=== PATIENT | male | born 1950 | race Caucasian/White ===

== ENCOUNTER 2019-11-05 12:31 | Emergency (ER) | payer BC ==
[~2019-11-05] VITALS: Ht 167.6 cm; Wt 74.0 kg
[~2019-11-05 12:31] MED LIST: AMOXICILLIN 50500 MG PO; ASPIR-LOW81 MG PO; ASPIRIN 32325 MG/TAB PO; ATORVASTATIN; BYSTOLIC20 MG PO; CLOPIDOGREL PO; EPA FISH OIL1000 MG PO; GLUCOPHAGE500 MG/TAB PO; HIGH BP MED; LIPITOR40 MG PO; LIPITOR80 MG PO; LISINOPRIL10 MG PO; LISINOPRIL40 MG PO; LISINOPRIL5 MG PO; LIVALO4 MG PO; METOPROLOL SUC100 M1 PO; METOPROLOL50 MG PO; NIACIN1000 MG PO; NKA; NORCO 325 MG-51 TAB PO; NORVASC 10MG10 MG PO; TRILIPIX 135MG PO
[2019-11-05 12:42] VITALS: BP 118/69; PULSE 96; TEMP 97.6
[2019-11-05] MEDS ORDERED: ZOCOR 10MG10 MG PO (12:51)
[2019-11-05] MEDS ORDERED: MAGNESIUM250 M1 PO (12:53)
[2019-11-05] MEDS ORDERED: CENTRUM SILVER1 TAB PO (12:54)
[2019-11-05 14:14] LABS: BASO # 0.1 (0.0-0.2); BASO % 0.6 % (0.0-2.0); EOS # 0.3 (0.0-0.7); EOS % 4.1 % (0-4.0); GRAN # 6.2 (1.4-6.5); GRAN % 74.1 % (42.2-75.2); HEMATOCRIT 43.2 % (42.0-52.0); HEMOGLOBIN 13.9 g/dl (13.5-18.0); LYMPH % 11.8 % (20.0-51.0); MEAN CELL VOLUME 97 fl (80.0-100.0); MEAN CORPUSCULAR HEMOGLOBIN 31 pg (27.0-31.0); MEAN CORPUSCULAR HGB CONC 32 g/dl (33.0-37.0); MEAN PLATELET VOLUME 9.7 fl (7.4-10.4); MONO # 0.8 (0.1-0.6); MONO % 9.2 % (1.7-9.3); PLATELET COUNT 176 K/mm3 (130-400); RED BLOOD COUNT 4.47 M/mm3 (4.20-5.60); REDCELL DISTRIBUTION WIDTH-CV 15.1 % (11.5-14.5)
[2019-11-05 14:50] LABS: ALBUMIN 3.6 gm/dL (3.5-5.0); BILIRUBIN,TOTAL 0.7 mg/dL (0.0-1.0); C-REACTIVE PROTEIN 1.1 mg/dL (0.0-0.9); CALCIUM 9.3 mg/dL (8.4-10.2); CREATININE, serum 1.62 (0.66-1.25); POTASSIUM 5.5 mmol/L (3.4-5.0); TOTAL PROTEIN 6.4 gm/dL (6.4-8.2); URIC ACID 8.4 mg/dL (3.5-8.5)
[2019-11-06] MEDS ORDERED: ELIQUIS 5MG PO (09:45)
== END 2019-11-05 15:30 | disposition home or self-care (01) ==
LOC: COL.ER 12:31
PROVIDERS: Emergency Medicine
DX: L08.9 Local infection of the skin and subcutaneous tissue, unspecified (principal); M79.662 Pain in left lower leg; Z79.82 Long term (current) use of aspirin; Z79.84 Long term (current) use of oral hypoglycemic drugs

== ENCOUNTER → 2019-11-06 | Outpatient (CLI) | payer BC ==
[~2019-11-06] MED LIST changes: +CENTRUM SILVER1 TAB PO; +ELIQUIS 5MG PO; +MAGNESIUM250 M1 PO; +ZOCOR 10MG10 MG PO
== END ==
LOC: COL.RAD 08:54
DX: Z13.6 Encounter for screening for cardiovascular disorders (principal); I82.432 Acute embolism and thrombosis of left popliteal vein

== ENCOUNTER 2020-02-13 07:16 | Inpatient (IN) | payer BC, MEDICARE ==
[~2020-02-13] VITALS: Ht 175 cm; Wt 77.0 kg
[2020-02-13] VITALS (11 sets, daily range): BP systolic 110–145; BP diastolic 61–95; PULSE 69–118; TEMP 98–98.5
[2020-02-13 07:54] LABS: BASO # 0.1 (0.0-0.2); EOS # 1.2 (0.0-0.7); EOS % 13.3 % (0-4.0); GRAN # 4.8 (1.4-6.5); GRAN % 55.2 % (42.2-75.2); HEMATOCRIT 44.5 % (42.0-52.0); HEMOGLOBIN 14.4 g/dl (13.5-18.0); LYMPH # 1.9 (1.2-3.4); LYMPH % 21.8 % (20.0-51.0); MEAN CELL VOLUME 94 fl (80.0-100.0); MEAN CORPUSCULAR HEMOGLOBIN 30 pg (27.0-31.0); MEAN CORPUSCULAR HGB CONC 32 g/dl (33.0-37.0); MEAN PLATELET VOLUME 9.2 fl (7.4-10.4); MONO # 0.7 (0.1-0.6); MONO % 8.5 % (1.7-9.3); PLATELET COUNT 218 K/mm3 (130-400); RED BLOOD COUNT 4.73 M/mm3 (4.20-5.60); REDCELL DISTRIBUTION WIDTH-CV 14.6 % (11.5-14.5)
[2020-02-13 07:56] LABS: INR 1.1 (0.8-3.0); PROTHROMBIN TIME 11.9 SECONDS (9.7-12.8)
[2020-02-13 07:59] LABS: PARTIAL THROMBOPLASTIN TIME 34.2 SECONDS (26.0-37.0)
[2020-02-13 08:00] LABS: ALANINE AMINOTRANSFERASE 15 U/L (4-49); ALBUMIN 3.9 gm/dL (3.5-5.0); ALKALINE PHOSPHATASE 39 U/L (50-136); ANION GAP 9 mmol/L (7-16); AST,SGOT 29 U/L (15-37); BILIRUBIN,TOTAL 0.6 mg/dL (0.0-1.0); BLOOD UREA NITROGEN 15 mg/dL (9-20); CALCIUM 9.3 mg/dL (8.4-10.2); CARBON DIOXIDE 21 mmol/L (22-30); CHLORIDE 107 mmol/L (98-107); CREATININE, serum 1.37 (0.66-1.25); GLUCOSE 188 mg/dL (74-106); MAGNESIUM 1.4 mg/dL (1.6-2.3); POTASSIUM 4.8 mmol/L (3.4-5.0); SODIUM 136 mmol/L (137-145); TOTAL PROTEIN 6.8 gm/dL (6.4-8.2)
[2020-02-13 08:24] LABS: TROPONIN-I < 0.012 ng/mL (0.000-0.035)
[2020-02-13 09:24] LABS: COLLECTION METHOD CLEAN CATCH
[2020-02-13 09:31] LABS: MUCOUS Present /lpf; PH 7 (5-8); SQUAMOUS EPITHELIAL 0-2 /hpf; URINE APPEARANCE Clear; URINE BACTERIA None Seen /hpf; URINE BILIRUBIN Negative (NEGATIVE); URINE BLOOD Negative (NEGATIVE); URINE COLOR Yellow; URINE GLUCOSE Negative (NEGATIVE); URINE KETONE Negative (NEGATIVE); URINE LEUKOCYTE ESTERASE Negative (NEGATIVE); URINE NITRATE Negative (NEGATIVE); URINE PROTEIN(semi-quant) Negative (NEGATIVE); URINE RBC 0-2 /hpf; URINE UROBILINOGEN Negative (NEGATIVE)
[2020-02-14] VITALS: BP 131/65; PULSE 68; TEMP 98.6
[2020-02-14 04:00] VITALS: BP 131/61; PULSE 65; TEMP 98.4
[2020-02-14 05:51] LABS: BASO # 0.1 (0.0-0.2); BASO % 0.7 % (0.0-2.0); EOS # 0.6 (0.0-0.7); EOS % 5.5 % (0-4.0); GRAN % 77.6 % (42.2-75.2); HEMATOCRIT 39.9 % (42.0-52.0); HEMOGLOBIN 13.2 g/dl (13.5-18.0); LYMPH # 0.9 (1.2-3.4); LYMPH % 8.9 % (20.0-51.0); MEAN CELL VOLUME 93 fl (80.0-100.0); MEAN CORPUSCULAR HEMOGLOBIN 31 pg (27.0-31.0); MEAN CORPUSCULAR HGB CONC 33 g/dl (33.0-37.0); MEAN PLATELET VOLUME 9.3 fl (7.4-10.4); MONO # 0.7 (0.1-0.6); MONO % 7.1 % (1.7-9.3); PLATELET COUNT 187 K/mm3 (130-400); RED BLOOD COUNT 4.29 M/mm3 (4.20-5.60); REDCELL DISTRIBUTION WIDTH-CV 14.4 % (11.5-14.5)
[2020-02-14 06:01] LABS: ALBUMIN 3.4 gm/dL (3.5-5.0); BILIRUBIN,TOTAL 0.9 mg/dL (0.0-1.0); CALCIUM 8.7 mg/dL (8.4-10.2); CHOLESTEROL RISK RATIO 2.1; CREATININE, serum 1.29 (0.66-1.25); MAGNESIUM 2.3 mg/dL (1.6-2.3); POTASSIUM 4.3 mmol/L (3.4-5.0); TOTAL PROTEIN 6.1 gm/dL (6.4-8.2)
[2020-02-14 08:30] VITALS: BP 135/76; PULSE 64; TEMP 98
[2020-02-14 12:11] VITALS: BP 138/69; PULSE 62; TEMP 99.6
[2020-02-14 17:24] VITALS: BP 128/62; PULSE 63; TEMP 98.3
[2020-02-14 21:21] VITALS: BP 125/63; PULSE 69; TEMP 98.9
[2020-02-15 00:12] VITALS: BP 133/71; PULSE 70; TEMP 99.3
[2020-02-15 04:08] VITALS: BP 132/68; PULSE 67; TEMP 98.4
[2020-02-15 06:49] LABS: CALCIUM 8.7 mg/dL (8.4-10.2); CREATININE, serum 1.51 (0.66-1.25); POTASSIUM 4.4 mmol/L (3.4-5.0)
[2020-02-15 07:53] VITALS: BP 139/63; PULSE 61; TEMP 98.6
[2020-02-15 12:01] VITALS: BP 131/68; PULSE 56; TEMP 98.4
[2020-02-15] MEDS ORDERED: ELIQUIS 5MG PO (15:03)
[2020-02-15] MEDS ORDERED: CEPHALEXIN500 M1 PO (15:03)
[2020-02-15] MEDS ORDERED: CRESTOR20 MG PO (15:04)
[2020-02-15] MEDS ORDERED: ASPIRIN 81M81 MG/TA2 PO (15:05)
[2020-02-15] MEDS ORDERED: BETAPACE 80MG80 MG PO (15:05)
== END 2020-02-15 16:30 | disposition home or self-care (01) | DRG 260 ==
LOC: COL.ER 07:16 → IMCU 13:38 → MEDICAL 02-14 11:59
PROVIDERS: Emergency Medicine; ADMIT Internal Medicine
PROC: 5A2204Z Restoration of Cardiac Rhythm, Single (ICD-10-PCS; principal; 2020-02-13)
PROC: 0JH632Z Insertion of Monitoring Device into Chest Subcutaneous Tissue and Fascia, Percutaneous Approach (ICD-10-PCS; 2020-02-14)
DX: I48.91 Unspecified atrial fibrillation (principal); I63.89 Other cerebral infarction; R20.2 Paresthesia of skin; F17.200 Nicotine dependence, unspecified, uncomplicated; I25.10 Atherosclerotic heart disease of native coronary artery without angina pectoris; Z95.1 Presence of aortocoronary bypass graft; E78.5 Hyperlipidemia, unspecified; I12.9 Hypertensive chronic kidney disease with stage 1 through stage 4 chronic kidney disease, or unspecified chronic kidney disease; E11.22 Type 2 diabetes mellitus with diabetic chronic kidney disease; N18.9 Chronic kidney disease, unspecified; Z79.84 Long term (current) use of oral hypoglycemic drugs; Z86.718 Personal history of other venous thrombosis and embolism; I65.23 Occlusion and stenosis of bilateral carotid arteries; E83.42 Hypomagnesemia
CPT/HCPCS: 99223-AI; 99232-AI; 99239; A9585; C1764; J0461; J1644; J2704; J3475; J7030; Q9967

== ENCOUNTER 2020-10-14 08:54 | Emergency (ER) | payer BC, MEDICARE ==
[~2020-10-14] VITALS: Ht 165 cm; Wt 70.0 kg
[~2020-10-14 08:54] MED LIST changes: +ASPIRIN 81M81 MG/TA2 PO; +BETAPACE 80MG80 MG PO; +CEPHALEXIN500 M1 PO; +CRESTOR20 MG PO; +GLUCOPHAGE1000 MG PO; -GLUCOPHAGE500 MG/TAB PO
[2020-10-14 08:59] VITALS: TEMP 98.3
[2020-10-14] MEDS ORDERED: PRINIVIL40 MG PO (09:42)
[2020-10-14 10:10] VITALS: BP 163/85; PULSE 58
== END 2020-10-14 10:10 | disposition home or self-care (01) ==
LOC: COL.ER 08:54
DX: S51.812A Laceration without foreign body of left forearm, initial encounter (principal); I48.91 Unspecified atrial fibrillation; Z79.01 Long term (current) use of anticoagulants; Z95.1 Presence of aortocoronary bypass graft; Z79.82 Long term (current) use of aspirin; Z79.84 Long term (current) use of oral hypoglycemic drugs; W01.198A Fall on same level from slipping, tripping and stumbling with subsequent striking against other object, initial encounter

== ENCOUNTER 2023-09-09 08:35 | Outpatient (CLI) | payer MEDICARE, BC ==
[~2023-09-09] VITALS: Ht 170.2 cm; Wt 86.3 kg
[~2023-09-09 08:35] MED LIST changes: +BETAPACE 120MG120 MG PO; +FERRO-TIME325 MG PO; -GLUCOPHAGE1000 MG PO; +GLUCOPHAGE500 MG/TAB PO; +HCTZ12.5TAB PO; +IMDUR 60MG60 MG/TAB PO; -NIACIN1000 MG PO; +NIACIN500 M4 PO; +NIASPAN 500MG500 MG PO; +PACERONE200 MG PO; +PACERONE400 MG PO; +PRINIVIL40 MG PO; +PROTONIX 40MG T40 MG PO; +SENEXON-S 50-81 EACH PO; +SODIUM BICARBO650 MG PO; +VITAMIN C500 MG PO; +XARELTO15 MG PO; +XARELTO20 MG PO
[2023-09-09 09:08] VITALS: BP 157/91; PULSE 69; TEMP 98.1
== END 2023-09-09 11:55 ==
LOC: EUO 08:35
DX: D64.9 Anemia, unspecified (principal)
CPT/HCPCS: J1756; J7050

== ENCOUNTER 2023-09-22 11:46 | Inpatient (IN) | payer MEDICARE, BC ==
[~2023-09-22] VITALS: Ht 172.7 cm; Wt 73.4 kg
[2023-09-22] VITALS (7 sets, daily range): BP systolic 135–179; BP diastolic 68–84; PULSE 76–82; TEMP 97.5–98.2
[2023-09-22 12:50] LABS: BASO # 0.1 K/mm3 (0.0-0.2); BASO % 0.6 % (0.0-2.0); EOS % 0.2 % (0.0-4.0); GRAN # 7.3 K/mm3 (1.4-6.5); GRAN % 81.6 % (42.2-75.2); HEMATOCRIT 30.5 % (42.0-52.0); HEMOGLOBIN 8.7 g/dl (13.5-18.0); LYMPH # 0.8 K/mm3 (1.2-3.4); LYMPH % 8.6 % (20.0-51.0); MEAN CELL VOLUME 101 fl (80.0-100.0); MEAN CORPUSCULAR HEMOGLOBIN 29 pg (27-31); MEAN CORPUSCULAR HGB CONC 29 g/dl (33.0-37.0); MEAN PLATELET VOLUME 9.9 fl (7.4-10.4); MONO # 0.7 K/mm3 (0.1-0.6); MONO % 7.7 % (1.7-9.3); PLATELET COUNT 109 K/mm3 (130-400); RED BLOOD COUNT 3.02 M/mm3 (4.20-5.60)
[2023-09-22 13:01] LABS: ALBUMIN 2.8 gm/dL (3.4-4.8); BILIRUBIN,TOTAL 1.5 mg/dL (0.2-1.2); CALCIUM 8.8 mg/dL (8.4-10.2); CREATININE, serum 5.01 mg/dL (0.72-1.25); POTASSIUM 4.6 mmol/L (3.5-4.5); TOTAL PROTEIN 5.9 gm/dL (6.2-8.1)
[2023-09-22 13:21] LABS: TROPONIN-I 0.101 ng/mL (0.00-0.033)
[2023-09-22] MEDS ORDERED: CORDARONE200 MG/TAB PO (14:07)
[2023-09-22] MEDS ORDERED: AMBIEN 10MG10 MG PO (14:08)
[2023-09-22] MEDS ORDERED: XANAX .25M0.25 MG/TA PO (14:09)
[2023-09-22] MEDS ORDERED: BUMEX 1MG TA1 MG/TA1 PO (14:10)
[2023-09-22] MEDS ORDERED: BETAPACE 120MG120 MG PO (14:39)
--- NOTE | 2023-09-22 15:10 | NUR ---
PT ARRIVED TO UNIT AROUND 1415/1430 FROM ED. PT HAD DRIED BLOOD ON FEET AND TOES, WHICH WAS CLEANED. PT HAS WOUNDS TO ALL TEN TOES ALONG THE KNUCKLES AND A FEW SCATTERED ALONG THE FEET; THESE WERE LEFT OPEN TO AIR THEY ARE NOT ACTIVELY WHEEPING OR BLEEDING. THEY APPEAR TO BE FRESH THOUGH. THERE WAS AN OLD SKIN TEAR SCABBED UP ON THE LT FOREARM WITH AN OLD BANDAGE ON IT, THIS WAS REMOVED AND AREA OBSERVED, THEN AN ACQUACELL PLACED ON IT. BELOW THIS SKIN TEAR IS ANOTHER SKIN TEAR THAT WAS NEW, SITE WAS CLEANED AND A TEGADERM PUT IN PLACE. PT HAS BRUISING TO BILATERAL ARMS AND RT SIDE OF HIS FACE. +4 PITTING EDEMA TO BILATERAL LOWER LEGS FROM THE ANKLES TO THE KNEES, THEN +2 FROM THE KNEES TO MID THIGHS. BILATERAL LOWER ARMS HAVE +3 - +4 PITTING EDEMA. PT IS A&OX3 BUT VERY DROWSY. HE IS UNSURE WHEN HE LAST TOOK ANY OF HIS MEDS AND IS UNCERTAIN ON HIS MED REC. HE DOESN'T THINK HE'S HAD ANY MEDICATION CHANGES SINCE HIS LAST ADMISSION, BUT CAN'T BE CERTAIN. DPOA WAS PRESENT AT BEDSIDE BUT IS ALSO UNSURE AND UNABLE TO LOCATE THE PATIENT'S MEDICATION LIST AT THIS TIME.
[2023-09-22 18:24] LABS: COLLECTION METHOD CLEAN CATCH
[2023-09-22 18:30] LABS: PH 7.5 (5.0-8.5); URINE APPEARANCE Hazy (CLEAR/HAZY); URINE COLOR Yellow (YELLOW); URINE GLUCOSE Negative (NEGATIVE); URINE KETONE TRACE (NEGATIVE); URINE NITRATE Negative (NEGATIVE); URINE PROTEIN(semi-quant) 1+ (NEGATIVE)
[2023-09-22 18:31] LABS: URINE BLOOD Negative (NEGATIVE)
[2023-09-22 19:37] LABS: SQUAMOUS EPITHELIAL 0-2 /hpf (0-10); URINE BACTERIA None Seen /hpf (NONE SEEN); URINE RBC 0-2 /hpf (0-2)
--- NOTE | 2023-09-22 19:45 | NUR ---
PT A&O LAYING IN BED. VSS ON ROOM AIR. DENYING PAIN OR N/V. WOUNDS TO ALL 10 TOES CUT PLUG PACKER & NO DRAINAGE PRESENT. X2 SKIN TEARS TO LEFT FOREARM WITH AQUACELL CDI. GERMAIN TO DD WITH CLEAR YELLOW OUTPUT. INT TO LEFT HAND PATENT. FALL PRECAUTIONS & CALL LIGHT IN REACH. PT DENYING FURTHER NEEDS
[2023-09-23] VITALS (11 sets, daily range): BP systolic 117–166; BP diastolic 70–81; PULSE 67–98; TEMP 97.6–98.3
--- NOTE | 2023-09-23 01:53 | NUR ---
PT HAVING SOME INTERMITTENT CONFUSION THROUGHOUT THE NIGHT & ATTEMPTING TO GET OUT OF BED. DENYING PAIN OR FURTHER NEEDS. FALL PRECAUTIONS IN PLACE & CALL LIGHT IN REACH.
[2023-09-23 06:11] LABS: BASO # 0.1 K/mm3 (0.0-0.2); BASO % 0.5 % (0.0-2.0); EOS # 0.2 K/mm3 (0.0-0.7); EOS % 1.8 % (0.0-4.0); GRAN # 9.9 K/mm3 (1.4-6.5); GRAN % 79.6 % (42.2-75.2); LYMPH # 1.3 K/mm3 (1.2-3.4); LYMPH % 10.1 % (20.0-51.0); MEAN CORPUSCULAR HGB CONC 30 g/dl (33.0-37.0); MEAN PLATELET VOLUME 9.9 fl (7.4-10.4); MONO # 0.9 K/mm3 (0.1-0.6); MONO % 7.2 % (1.7-9.3); PLATELET COUNT 109 K/mm3 (130-400); RED BLOOD COUNT 3.07 M/mm3 (4.20-5.60); REDCELL DISTRIBUTION WIDTH-CV 25.2 % (11.5-14.5)
[2023-09-23 06:14] LABS: HEMATOCRIT 29.3 % (42.0-52.0); HEMOGLOBIN 8.8 g/dl (13.5-18.0); MEAN CELL VOLUME 95 fl (80.0-100.0); MEAN CORPUSCULAR HEMOGLOBIN 29 pg (27-31)
[2023-09-23 06:34] LABS: ALBUMIN 2.6 gm/dL (3.4-4.8); CALCIUM 8.7 mg/dL (8.4-10.2); CREATININE, serum 5.09 mg/dL (0.72-1.25); MAGNESIUM 1.8 mg/dL (1.6-2.6); PHOSPHOROUS 3.2 mg/dL (2.3-4.7); POTASSIUM 3.6 mmol/L (3.5-4.5)
--- NOTE | 2023-09-23 08:00 | NUR ---
PATIENT IS A&O X2, NOTED OCCATIONAL FORGETFULNESS/CONFUSION. VSS. NO COMPLAINTS AT THIS TIME. LEFT HAND IV TO INT. BREAKFAST TRAY AT BEDSIDE. AM MEDS GIVEN. HEAD TO TOE ASSESSMENT COMPLETE. GERMIAN TO DD WITH MOD AMOUNTS OF CLEAR YELLOW URINE. NOTED SKIN ISSUES, SEE SHIFT ASSESSMENT. NEPHROLOGY TO SEE PATIENT THIS AM. NO OTHER NEEDS AT THIS TIME. CALL LIGHT IN REACH. BED ALARM ON.
--- NOTE | 2023-09-23 09:44 | NUR ---
Initial visit; Patient eating breakfast and seemingly doing ok. Serg says he is doing "ok, not great." says she doesn't want to interrupt his breakfast but asked if she could keep him in her prayers and if he decides later he would like to see sh someone would let her know.
--- NOTE | 2023-09-23 11:47 | NUR ---
mold loft worker met with pt to discuss discharge planning. Pt was recently here and is now re-admitted. Pt lives alone in [place]. He has a friend and DPOA-HC as Khris [phone]. Pt sees Dr. Martínez and obtains medications from [facility] with no difficulties. Pt has a FWW and cane at home, but did not use them often he reports. Pt was independent with ADLS, but reports he will need some help. Isaías and LENA discussed PT/OT reccs for SNF vs Acute Rehab. Pt was concerned about the length of stay as he has pets at home. His friend, Khris would be able to help with his pets. Pt reports he would prefer outpatient PT as it would be more comfortable. He states he is open to all options though as he knows he needs rehab. Discharge Plan: SNF vs Acute Rehab
--- NOTE | 2023-09-23 17:10 | NUR ---
hoe worker reviewed PT/OT recommendations, both recommended SNF. LENA met with patient and presented Medicare.gov for SNF options in his local area. Patient chose for LENA to send referrals to [facility], [facility] and [facility]. LENA faxed referrals to the above facilities. Discharge Plan: SNF
--- NOTE | 2023-09-23 20:17 | NUR ---
PT ASSISTED FROM CHAIR TO BED WITH ONE ASSIST. HAS MULTIPLE BRUISED AREAS FROM FALLS AT HOME, INCLUDING RT SIDE OF FACE, ARMS/HANDS. REDRESSED SKIN TEAR TO LT ARM/ELBOW AREA AND REMOVED DRSG FROM OLD ABRASION TO LT ARM. PT REPORTS PAIN TO LT CHEST WITH DEEP BREATH, TYLENOL 650MG PO GIVEN. HAS INT TO LT HAND, IV LASIX GIVEN PER ORDER. PT HAS GERMAIN TO BSD WITH YELLOW URINE. BLE PITTING EDEMA NOTED. BED ALARM ON FOR SAFETY.
--- NOTE | 2023-09-23 22:29 | NUR ---
REPORTED POSITIVE BLOOD CULTURES TO MARY TOM. "GM +COCCI IN BOTH AEROBIC/ANAEROBIC BOTTLES LOOKS LIKE STREP".
--- NOTE | 2023-09-23 23:53 | NUR ---
ONE TIME DOSE OF VANCO 2GM/500CC NS INITIATED, INFUSING WITHOUT PROBLEM.
[2023-09-24] VITALS (11 sets, daily range): BP systolic 107–158; BP diastolic 68–86; PULSE 49–89; TEMP 97.5–98.4
--- NOTE | 2023-09-24 01:45 | NUR ---
REPORTED BLOOD CULTURE GROWTH OF ENTEROCOCCUS FAECALIS TO MARY MAURICIO
--- NOTE | 2023-09-24 04:21 | NUR ---
PT REPORTS BURNING TO PENIS, GERMAIN CARES PROVIDED, EMPTIED 1550 FROM GERMAIN BAG.
[2023-09-24 06:43] LABS: BASO # 0.1 K/mm3 (0.0-0.2); BASO % 0.4 % (0.0-2.0); EOS # 0.1 K/mm3 (0.0-0.7); EOS % 0.9 % (0.0-4.0); GRAN # 12.3 K/mm3 (1.4-6.5); GRAN % 87.3 % (42.2-75.2); LYMPH # 0.8 K/mm3 (1.2-3.4); LYMPH % 5.9 % (20.0-51.0); MEAN CELL VOLUME 96 fl (80.0-100.0); MEAN CORPUSCULAR HGB CONC 30 g/dl (33.0-37.0); MEAN PLATELET VOLUME 9.9 fl (7.4-10.4); MONO # 0.7 K/mm3 (0.1-0.6); MONO % 4.8 % (1.7-9.3); PLATELET COUNT 104 K/mm3 (130-400); RED BLOOD COUNT 3.27 M/mm3 (4.20-5.60); REDCELL DISTRIBUTION WIDTH-CV 25.2 % (11.5-14.5)
[2023-09-24 06:48] LABS: HEMATOCRIT 31.5 % (42.0-52.0); HEMOGLOBIN 9.4 g/dl (13.5-18.0); MEAN CORPUSCULAR HEMOGLOBIN 29 pg (27-31)
[2023-09-24 07:04] LABS: ALBUMIN 2.5 gm/dL (3.4-4.8); CALCIUM 8.7 mg/dL (8.4-10.2); CREATININE, serum 5.17 mg/dL (0.72-1.25); MAGNESIUM 1.7 mg/dL (1.6-2.6); PHOSPHOROUS 4.1 mg/dL (2.3-4.7); POTASSIUM 3.2 mmol/L (3.5-4.5)
--- NOTE | 2023-09-24 08:00 | NUR ---
PATIENT IS A&O X2, NOTED OCCATIONAL FORGETFULNESS/CONFUSION. VSS. NO COMPLAINTS AT THIS TIME. PATIENT SITTING UP IN BEDSIDE CHAIR WITH BREAKFAST TRAY. LEFT HAND IV TO INT. BREAKFAST TRAY AT BEDSIDE. AM MEDS GIVEN. HEAD TO TOE ASSESSMENT COMPLETE. GERMAIN TO DD WITH MOD AMOUNTS OF CLEAR YELLOW URINE. NOTED SKIN ISSUES, SEE SHIFT ASSESSMENT. NO OTHER NEEDS AT THIS TIME. CALL LIGHT IN REACH. CHAIR ALARM ON.
--- NOTE | 2023-09-24 13:35 | NUR ---
UA THAT WAS ORDERED 09/22 AND THEN CANCELED FOR SOME REASON, NOW SENT TO LAB PER HOSPITALIST.
[2023-09-24 13:44] LABS: COLLECTION METHOD IN
[2023-09-24 13:59] LABS: URINE APPEARANCE Clear (CLEAR/HAZY); URINE COLOR Yellow (YELLOW)
[2023-09-24 14:00] LABS: SQUAMOUS EPITHELIAL 0-2 /hpf (0-10); URINE BACTERIA Rare /hpf (NONE SEEN); URINE BLOOD 3+ (NEGATIVE); URINE GLUCOSE Negative (NEGATIVE); URINE KETONE Negative (NEGATIVE); URINE NITRATE Negative (NEGATIVE); URINE PROTEIN(semi-quant) Negative (NEGATIVE); URINE RBC 20-50 /hpf (0-2); URINE UROBILINOGEN 0.2 E.U/dL (0.2-1.0)
--- NOTE | 2023-09-24 17:00 | NUR ---
PATIENT WANTS GERMAIN OUT, SEE 'S ORDERS. GERMAIN DC'D, CATH TIP INTACT AND PATIENT TOLERATED WELL. PATIENT ASSISTED TO BATHROOM TO TRY AND VOID AND HAVE A BM
--- NOTE | 2023-09-24 17:01 | NUR ---
front desk worker faxed updates to Michael, [facility] and Rick. Michael asked if patient was going to start dialysis, at this time it is unknown. SW expressed she would follow up after doctor discusses with patient. Michael and [facility] will continue to follow. Discharge plan: SNF
--- NOTE | 2023-09-24 21:10 | NUR ---
PT IN BED, USING URINAL. HAS BLOOD TINGED URINE, S/P GERMAIN REMOVAL TODAY. INT TO LT HAND LEAKING, RESTARTED #20 INSYTE TO RFA ON FIRST ATTEMPT. REMOVED INT FROM LT HAND, ANGIOCATH INTACT. PT IS ALERT AND ORIENTED. WILL BE NPO AT MIDNIGHT, PT AWARE. HAS MULTIPLE ABRASIONS TO ELBOWS/KNEES AND TOPS OF TOES ON BOTH FEET. MULTIPLE BRUISES TO FACE/ARMS AND LEGS. SMALL BLISTER TO RLE. SKIN TEAR TO LFA ARCHERY INSTRUCTOR. IV LASIX GIVEN PER ORDER. HAS BLE PITTING EDEMA. IS ORIENTED X3, OHKAY OWINGEH. BED ALARM ON.
[2023-09-25] VITALS (13 sets, daily range): BP systolic 144–168; BP diastolic 59–76; PULSE 69–86; TEMP 97.7–98.4
--- NOTE | 2023-09-25 | NUR ---
NPO FOR TAYLOR AND DIALYSIS CATH PLACEMENT. ASSISTED WITH URINAL. URINE HAS CLEARED.
--- NOTE | 2023-09-25 04:00 | NUR ---
PT CALLS FOR ASSIST WITH URINAL, URINE YELLOW. NO COMPLAINTS OF PAIN.
[2023-09-25 06:20] LABS: BASO % 0.4 % (0.0-2.0); EOS # 0.3 K/mm3 (0.0-0.7); EOS % 2.8 % (0.0-4.0); GRAN # 7.2 K/mm3 (1.4-6.5); GRAN % 78.5 % (42.2-75.2); LYMPH # 0.9 K/mm3 (1.2-3.4); LYMPH % 9.3 % (20.0-51.0); MEAN CELL VOLUME 94 fl (80.0-100.0); MEAN CORPUSCULAR HGB CONC 30 g/dl (33.0-37.0); MEAN PLATELET VOLUME 9.6 fl (7.4-10.4); MONO # 0.8 K/mm3 (0.1-0.6); MONO % 8.5 % (1.7-9.3); RED BLOOD COUNT 3.16 M/mm3 (4.20-5.60); REDCELL DISTRIBUTION WIDTH-CV 24.8 % (11.5-14.5)
[2023-09-25 06:22] LABS: HEMATOCRIT 29.6 % (42.0-52.0); MEAN CORPUSCULAR HEMOGLOBIN 28 pg (27-31)
[2023-09-25 06:24] LABS: PLATELET COUNT 103 K/mm3 (130-400)
[2023-09-25 06:38] LABS: ALBUMIN 2.4 gm/dL (3.4-4.8); CALCIUM 8.6 mg/dL (8.4-10.2); MAGNESIUM 1.6 mg/dL (1.6-2.6); PHOSPHOROUS 4.2 mg/dL (2.3-4.7); POTASSIUM 3.5 mmol/L (3.5-4.5)
--- NOTE | 2023-09-25 06:50 | NUR ---
awake resting in bed, bedside shift report received from RANJIT Stephenson
--- NOTE | 2023-09-25 07:20 | NUR ---
resting in bed, full assessment completed, see interventions for further info, has scabs on top of toes on right foot and bruising and scrapes to upper extrmnities, will rest in bed before procedures
--- NOTE | 2023-09-25 08:30 | NUR ---
PROFESSOR OF BUSINESS in and assisted him with am hygiene, sitting up in chair and ready for procedure
--- NOTE | 2023-09-25 08:50 | NUR ---
assisted back into bed and to ballistics laboratory gunsmith for TAYLOR
--- NOTE | 2023-09-25 10:34 | NUR ---
returned per bed from TAYLOR, awake and alert, IV infusing per gravity, stopped and to INT, am meds given at this time, he is still asking about the dialysis catheter and informed hiim the Dr would be around soon to discuss this, verbalizes understanding, voids per urinal, denies pain or needs
--- NOTE | 2023-09-25 10:35 | NUR ---
Bedside report completed with Lupis LLOYD. First set of vitals reviewed. Call light within reach, telemetry box in place. Lupis Lloyd denies questions/concerns.
--- NOTE | 2023-09-25 11:19 | NUR ---
resting in bed between checks, uses urinal with assistance, has some bloody drainage around meatus, urine is clear light tod
--- NOTE | 2023-09-25 11:40 | NUR ---
Dr Rangel in to see and talk with patient regarding results of his TAYLOR, will plan to transfer to higher level of care
--- NOTE | 2023-09-25 12:23 | NUR ---
he is aware he will be transferred today to [facility], assisted him with ordering food
--- NOTE | 2023-09-25 13:11 | NUR ---
resting in bed, had breakfast and tolerated
[2023-09-25] MEDS ORDERED: *Vancomycin Dosing P IV (13:47)
--- NOTE | 2023-09-25 14:00 | NUR ---
visiting with friends, nursing station supervisor was in and consent was signed for transfer, report called to RANJIT Booker at [facility],
--- NOTE | 2023-09-25 14:15 | NUR ---
report called to RANJIT Booker at [facility]
--- NOTE | 2023-09-25 14:15 | NUR ---
farmworker dairy emailed clinical updates to [facility]. SW faxed updates to [facility].
--- NOTE | 2023-09-25 15:15 | NUR ---
[facility] here, telemetry discontinued, bedside report given to EMS, stood up from bed and pivoted to EMS stretcher, discharged
--- NOTE | 2023-09-25 15:23 | NUR ---
weld lay out worker was notified by Dr. Ragnel that patient may need to transfer to another facility pending testing. SW will continue to follow.
== END 2023-09-25 16:07 | disposition short-term general hospital (02) | DRG 682 ==
LOC: COL.ER 11:46 → SURG 13:52
PROVIDERS: Family Medicine; Internal Medicine; ADMIT Internal Medicine
DX: N17.9 Acute kidney failure, unspecified (principal); I33.0 Acute and subacute infective endocarditis; I48.20 Chronic atrial fibrillation, unspecified; N18.9 Chronic kidney disease, unspecified; Z79.01 Long term (current) use of anticoagulants; I25.10 Atherosclerotic heart disease of native coronary artery without angina pectoris; Z95.1 Presence of aortocoronary bypass graft; Z95.0 Presence of cardiac pacemaker; Z72.0 Tobacco use; E78.5 Hyperlipidemia, unspecified; I10 Essential (primary) hypertension; E11.9 Type 2 diabetes mellitus without complications; Z79.84 Long term (current) use of oral hypoglycemic drugs; Z86.718 Personal history of other venous thrombosis and embolism
CPT/HCPCS: A9270; G0378; J1205; J1940; J2704; J3370; J3480; J7030; J7040; Q3014

== ENCOUNTER 2023-10-09 21:27 | Inpatient (IN) | payer MEDICARE, BC ==
[~2023-10-09] VITALS: Ht 170.2 cm; Wt 83.9 kg
[~2023-10-09 21:27] MED LIST changes: +*Vancomycin Dosing P IV; +AMBIEN 10MG10 MG PO; +BUMEX 1MG TA1 MG/TA1 PO; +CORDARONE200 MG/TAB PO; +XANAX .25M0.25 MG/TA PO
[2023-10-09] MEDS ORDERED: Ondansetron 4 MG/2 ML VIAL IV ONE (22:15)
[2023-10-09] MEDS ORDERED: Morphine 4 MG/ML VIAL IV ONE (22:15)
[2023-10-09 22:38] LABS: BASO % 0.2 % (0.0-2.0); GRAN # 6.4 K/mm3 (1.4-6.5); GRAN % 73.4 % (42.2-75.2); LYMPH # 1.1 K/mm3 (1.2-3.4); LYMPH % 12.3 % (20.0-51.0); MEAN CELL VOLUME 97 fl (80.0-100.0); MEAN CORPUSCULAR HGB CONC 30 g/dl (33.0-37.0); MEAN PLATELET VOLUME 9.4 fl (7.4-10.4); MONO # 1.2 K/mm3 (0.1-0.6); MONO % 13.3 % (1.7-9.3); PLATELET COUNT 177 K/mm3 (130-400); RED BLOOD COUNT 2.84 M/mm3 (4.20-5.60)
[2023-10-09 22:42] LABS: HEMATOCRIT 27.6 % (42.0-52.0); HEMOGLOBIN 8.3 g/dl (13.5-18.0); MEAN CORPUSCULAR HEMOGLOBIN 29 pg (27-31)
[2023-10-09] MEDS ORDERED: Bumetanide 1 MG/4 ML VIAL IV ONE (23:00)
[2023-10-09 23:07] LABS: ALBUMIN 2.1 gm/dL (3.4-4.8); BILIRUBIN,TOTAL 0.6 mg/dL (0.2-1.2); CALCIUM 8.9 mg/dL (8.4-10.2); CREATININE, serum 3.12 mg/dL (0.72-1.25); MAGNESIUM 1.5 mg/dL (1.6-2.6); POTASSIUM 4.5 mmol/L (3.5-4.5); TOTAL PROTEIN 5.8 gm/dL (6.2-8.1)
[2023-10-09 23:38] LABS: COLLECTION METHOD CLEAN CATCH
[2023-10-09 23:49] LABS: PH 5.5 (5.0-8.5); URINE APPEARANCE Clear (CLEAR/HAZY); URINE BLOOD 1+ (NEGATIVE); URINE COLOR Yellow (YELLOW); URINE GLUCOSE Negative (NEGATIVE); URINE KETONE Negative (NEGATIVE); URINE NITRATE Negative (NEGATIVE); URINE PROTEIN(semi-quant) 1+ (NEGATIVE); URINE UROBILINOGEN 0.2 E.U/dL (0.2-1.0)
[2023-10-09 23:52] LABS: URINE BACTERIA Rare /hpf (NONE SEEN); URINE RBC 0-2 /hpf (0-2)
[2023-10-10] VITALS (9 sets, daily range): BP systolic 117–154; BP diastolic 56–76; PULSE 60–77; TEMP 97.4–98.2
[2023-10-10] MEDS ORDERED: Dicyclomine 10 MG CAP PO ONE (00:30)
[2023-10-10] MEDS ORDERED: AMBIEN 10MG10 MG PO (00:53)
[2023-10-10] MEDS ORDERED: AMPICILLIN 22 G/VIAL IV (00:56)
[2023-10-10] MEDS ORDERED: ROCEPHIN 2GM VIAL21 IV (00:58)
[2023-10-10] MEDS ORDERED: CRESTOR20 MG PO (01:02)
[2023-10-10] MEDS ORDERED: DULCOLAX S10 MG/SUPP RC (01:06)
[2023-10-10] MEDS ORDERED: DULCOLAX TAB5 MG PO ×2 (01:10)
[2023-10-10] MEDS ORDERED: FLEET ENEM1 BOT/133 RC (01:13)
[2023-10-10] MEDS ORDERED: ATROVENT I0.2 MG/1 M IH (01:16)
[2023-10-10] MEDS ORDERED: IMDUR 60MG60 MG/TAB PO (01:18)
[2023-10-10] MEDS ORDERED: MYCOSTATIN100000 U/1 TP (01:22)
[2023-10-10] MEDS ORDERED: SODIUM BICARBO650 MG PO (01:25)
[2023-10-10] MEDS ORDERED: VITAMIN C500 MG PO (01:26)
[2023-10-10] MEDS ORDERED: XANAX .25M0.25 MG/TA PO (01:27)
[2023-10-10] MEDS ORDERED: Bumetanide 1 MG/4 ML VIAL IV ONE (02:30)
[2023-10-10] MEDS ORDERED: cefTRIAXone 2 G in Water For Injection,Sterile 20 ML IV ONE (03:00)
[2023-10-10] MEDS ORDERED: ROCEPHIN 2GM VIAL21 IJ (04:45)
[2023-10-10] MEDS ORDERED: SENNA-LAX8.6 MG PO (04:48)
[2023-10-10] MEDS ORDERED: Zolpidem 10 MG TAB PO PRN (05:15)
[2023-10-10] MEDS ORDERED: Acetaminophen 325 MG TAB PO PRN (05:30)
[2023-10-10] MEDS ORDERED: Ondansetron 4 MG/2 ML VIAL IV PRN (05:30)
[2023-10-10] MEDS ORDERED: Albuterol/Ipratropium 3 MG-0.5 MG/3 ML Neb Soln IH PRN (05:30)
[2023-10-10] MEDS ORDERED: Magnesium Sulfate 4% 50 ML IV ONE (05:30)
--- NOTE | 2023-10-10 05:40 | NUR ---
Patient arrived at the unit at this time with personal belongings including cell phone and clothes. IV in right upper arm flushes with no complicaitons. PICC in left upper arm unable to pull blood from. Patient appears in pain and rates his pain a 10/10. Assessment complete. Patient A&O x4. Patient denies any allergies. Unable to complete med rec at this time due to patient pain and going for CT scan. Oriented patient to room, call light, bed, and bathroom. Denies any other needs at this time other than pain meds. Waiting on orders and verification. Call light and personal items in reach. Bed in low position and bed alarm on.
[2023-10-10] MEDS ORDERED: Morphine 4 MG/ML VIAL IV PRN (06:15)
[2023-10-10] MEDS ORDERED: Isosorbide Mononitrate CR (24-HR) 60 MG TAB PO SCH (07:00)
--- NOTE | 2023-10-10 08:00 | NUR ---
PATIENT IS A&O. VSS ON TELE. 02 @ 1L PER NC WITH SATS IN MID TO UPPER 90'S. INTERNET SALESPERSON NURSE REPORTS A DECREASE IN SATS AFTER PATIENT GOT IV MORPHINE FOR C/O RECTAL PAIN/CRAMPING AND HEMORRHOIDS. PATIENT IS VERY DRAMATIC WITH RECTAL PAIN/CRAMPS AND THROWS HIS HEAD BACK, DEEP BREATHES, AND GRUNTS. RN OFFERED NEWLY PRESCRIBED SUPP AND AT FIRST HE REFUSED. PATIENT'S FRIENDS AND DPOA ARRIVED AND WERE ABLE TO DISCUSS THIS. PATIENT AGREED TO TRY THE SUPP AND CREAM FOR HEMORRHOIDS. NOTED WHEEZING AND DEMINISHED LUNG BASES. PATIENT ADMITED WITH CHF EXACERBATION AND FLUID OVERLOAD. +3 EDEMA TO BLE & BUE. +2 EDEMA TO GENITALS. INTERNET SALESPERSON REPORTS PATIENT WAS INCONTINENT OF LOOSE STOOL LAST NIGHT. PATIENT IS VERY WEAK, 2 MAX ASSIST. PT/OT CONSULTED. PATIENT ALSO HAS HX OF CKD AND HAS ELEVATED BUN OF 58, CREATININE OF 3.12. NOTED LOTS OF SKIN ISSUES, SEE SHIFT ASSESSMENT. NO C/O N/V. TOLERATING ADA DIET. AM MEDS GIVEN, SEE MAR. INTERNET SALESPERSON ALSO REPORTED "LUE PICC LINE DOES NOT DRAW BLOOD" AND NO FURTHER ASSESSMENT/EVAL HAS BEEN DONE WITH THE SITE. PATIENT WAS ADMITTED WITH IV SITE, PATIENT SAYS THE "CENTRAL LINE WAS PLACED AT [facility]" FOR HIS IV ABX. PATIENT HAD POSITIVE BLOOD CULTURES AT OUR FACILITY BEFORE TRANSFERING TO [facility]. UNABLE TO GET BLOOD RETURN ON LUE LINE AND APPEARS TO LEAK A LITTLE WHEN FLUSHED. DISCUSSED THIS WITH HOSPITALIST, SEE ORDERS FOR CXR AND SURGEON CONSULT. PATIENT IS A VERY HARD IV STICK AND LAB HAS DIFFICULTY WITH BLOOD DRAWS. ER WAS ABLE TO START A 22G IV INTO E, CURRENTLY TO INT. HEAD TO TOE ASSESSMENT COMPLETE. CALL LIGHT IN REACH. BED ALARM ON.
--- NOTE | 2023-10-10 08:05 | NUR ---
PATIENT OFTEN INCONTINENT OF URINE BEFORE HE IS ABLE TO GET URINAL INPLACE. DIFFICULT I&O
[2023-10-10] MEDS ORDERED: CEFTRIAXONE 2 GM IV SCH (09:00)
[2023-10-10] MEDS ORDERED: Ferrous Sulfate 325 MG TAB PO SCH (09:00)
[2023-10-10] MEDS ORDERED: Amiodarone 200 MG TAB PO SCH (09:00)
[2023-10-10] MEDS ORDERED: Hydrocortisone 2.5% Cream 28.35 GM TUBE TOP SCH (09:00)
[2023-10-10] MEDS ORDERED: Sennosides/Docusate 8.6-50 MG TAB PO SCH (09:00)
[2023-10-10] MEDS ORDERED: Bumetanide 1 MG/4 ML VIAL IV SCH (09:00)
[2023-10-10] MEDS ORDERED: Niacin SA 250 MG CAP PO SCH (09:00)
[2023-10-10] MEDS ORDERED: Fenofibrate 54 MG TABLET PO SCH (09:00)
[2023-10-10] MEDS ORDERED: Furosemide 40 MG/4 ML VIAL IV ONE (11:00)
--- NOTE | 2023-10-10 11:55 | NUR ---
REQUESTING RECORD FROM [facility]; DISCHARGE SUMMARY & I.D. RECS FOR ABX. RN ATTEMPTED TO CONTACT [facility] BUT DUE TO THE WEEKEND WAS ONLY ABLE TO FAX A REQUEST. ALSO CONTACTED [employer] FOR A COPY OF TRANSFER PAPERS FROM [facility], AWAITING FAXES.
[2023-10-10] MEDS ORDERED: Albuterol 0.042% Neb Soln 1.25 MG/3 ML UD IH SCH (14:00)
[2023-10-10] MEDS ORDERED: cefTRIAXone 2 G in Water For Injection,Sterile 20 ML IV SCH (15:00)
--- NOTE | 2023-10-10 15:00 | NUR ---
AFTER CXR AND GETTING DISCHARGE GURPREET FROM [facility] FAXED FROM [facility]. MEDICAL TEAM EVALUATED LUE MIDLINE AGAIN AND CONFIRMED SITE IS LEAKING WITH FLUSHING. ORDERS TO DC MIDLINE PER HOSPITALIST. DC'D LUE MIDLINE, TIP INTACT AND PATIENT TOLERATED WELL. MIDLINE SEEMED VERY SHORT AND APPEARD TO BE FUNCTIONING MORE LIKE A PERIPHERAL, SITE PLACED 10/06/23 AT [facility]. COVERED SITE WITH GAUZE & ACEWRAP.
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
[2023-10-10] MEDS ORDERED: Rivaroxaban 15 MG TAB PO SCH (17:00)
[2023-10-10] MEDS ORDERED: Atorvastatin 40 MG TAB PO SCH (21:00)
[2023-10-10] MEDS ORDERED: Rosuvastatin 20 MG **** subs to Atorvastatin 40 MG PO SCH (21:00)
[2023-10-11] VITALS (12 sets, daily range): BP systolic 122–153; BP diastolic 66–80; PULSE 68–76; TEMP 97.4–98.5
--- NOTE | 2023-10-11 08:00 | NUR ---
PATIENT IS A&O X3 BUT OFTEN REPEATS HIMSELF AND TALKS IN CIRCLES. PATIENT EXPRESSES A LOT OF CONCERN ABOUT HIS ROOM ON HOLD AT [facility] AND WANTS TO TALK WITH ELECTRIC LINEMAN ABOUT GOING BACK UPON DISCHARGE. ELECTRIC LINEMAN ON CASE. VSS ON TELE. PATIENT REPORTS RECTAL CRAMPS AND HEMORRHOID PAIN IS COMPLETELY GONE. PATIENT NOW C/O LEFT ELBOW PAIN AND REQUESTING SOMETHING FOR PAIN, GIVEN. PATIENT HAS MULTIPLE SKIN ISSUES FROM FALL, VERY FRAGILE SKIN TO WHICH HE GAVE HIMSELF TWO MORE SKIN TEARS BY PULLING OFF TELE LEADS HIMSELF LAST NIGHT. DSG'S APPLIED TO [facility] BUE SKIN TEARS. BUE EDEMA IS SLIGHTLY IMPROVED, +2 EDEMA. BLE +3 EDEMA. PATIENT INTERMITTENTLY INCONTINENT WITH URINAL USE, BRIEF ALSO INPLACE. A&P WHEEZING SEEMS IMPROVED, LUNG FEILDS ARE STILL DEMINISHED. PATIENT IS STILL VERY WEAK, 2 MAX ASSIST. PT/OT CONSULTED. HEAD TO TOE ASSESSMENT COMPLETE. TOLERATING ADA DIET. LEFT HAND IV TO INT. NO OTHER NEEDS AT THIS TIME. CALL LIGHT IN REACH. BED ALARM ON.
[2023-10-11] MEDS ORDERED: Miconazole 2% Topical Powder BOTTLE TP SCH (09:00)
[2023-10-11] MEDS ORDERED: Nystatin Powder **** subs to Miconazole Powder TOP SCH (09:00)
[2023-10-11] MEDS ORDERED: Methyl Salicylate/Menthol Cream 85 GM TUBE TP SCH (09:00)
[2023-10-11] MEDS ORDERED: NEOMYCIN TP SCH (09:00)
[2023-10-11] MEDS ORDERED: POLYMYX B TP SCH (09:00)
[2023-10-11] MEDS ORDERED: BACITRACIN TP SCH (09:00)
--- NOTE | 2023-10-11 10:13 | NUR ---
SW met with patient to complete intake, patient is resident with Rick. Patient confirmed that his PCP is currently Dr Martínez, patient reports that his PCP is retiring and has not yet met his replacement. Patient shared that his pharmacy of choice is [facility]. WARRENK is friend Khris Nayak [phone]. DPOA is on file. Patient reports that independent with ADL's, does have support as needed and currently no DMEs. D/C plan: pending further medical recommendations at this time.
--- NOTE | 2023-10-11 11:34 | NUR ---
SPOKE WITH PATIENT'S OUTPATIENT FRAMING SPECIALIST WHO HAS PLANS FOR FUTURE FISTULA IN RUE AND EXTREMITY RESTRICTION BAND INPLACE. PLAN IS TO HAVE AIVS PLACE PICC LINE IN Thursday FOR DISCHARGE NEEDS. SEE HOSPITALIST NOTES.
[2023-10-11 12:33] LABS: CALCIUM 8.4 mg/dL (8.4-10.2); CREATININE, serum 3.21 mg/dL (0.72-1.25); POTASSIUM 4.6 mmol/L (3.5-4.5)
[2023-10-11] MEDS ORDERED: Patiromer 8.4 G Oral Susp **** subs to Sodium Zirconium Cyclosilicate 10 G Oral Susp PO ONE (14:45)
[2023-10-11] MEDS ORDERED: Sodium Zirconium Cyclosilicate for Oral Susp 10 GM PACKET PO SCH (15:00)
--- NOTE | 2023-10-11 18:19 | NUR ---
PT BEING DIURESED FOR FLUID RETENTION TO WHICH AN ALB 1.25 WAS ORDERED Q6H. PT HAS REFUSED NEB TREATMENT FOR OVER 24H, PRN IN PLACE AND PATIENT AWARE OF ITS USE. PT ALSO ON RA FOR MORE THAN 24H.
[2023-10-11] MEDS ORDERED: Fluticasone Nasal 50 MCG/Spray 16 GM BOTTLE NS SCH (23:23)
[2023-10-12] VITALS (8 sets, daily range): BP systolic 126–174; BP diastolic 60–82; PULSE 75–89; TEMP 97.5–98.2
--- NOTE | 2023-10-12 06:36 | NUR ---
PT C/O PAIN IN LEFT ELBOW, ULCER PRESENT ON POSTERIOR LANEY AREA, TRIPLE ANTIBIOTIC OINTMENT AND MEPILEX DSG PLACED. NORCO GIVEN FOR PAIN WITH GOOD RESULTS @ 2102. PT WAS STILL AWAKE @ 2339, ASKED FOR HIS SLEEPING PILL. AMBIEN GIVEN ORDERED. PT ALSO ASKING FOR BREATHING TX, RT CURRENTLY UNABLE TO GET HERE, DARNELL MYERS NOTIFIED MUCUS RELIEF AND FLONASE ORDERED. PT ABLE TO SLEEP AFTER AMBIEN PCT WENT IN AT 0330 TO OBTAIN VS, PT WOKE UP QUITE CONFUSED AND DISORIENTED, ONLY SPEAKING IN POLISH, TRYING TO GET OUT OF BED. INCREASED WOB, O2 SAT 85% ON RA, INS/EXP WHEEZES. HAS BEEN INCONTINENT OF URINE, RT CALLED FOR BREATHING TX, NOTIFIED KURTIS Lim. DARNELL, DC'D BATOOLIEN, AM LABS ORDERED. PT ON 2L O2 PER NC. MORE ALERT AND ORIENTED THIS AM. ASKING FOR URINAL WHEN NEEDED. DRESSING TO RFA SKIN TEAR CHANGED. PT ASKING FOR BREAKFAST.
--- NOTE | 2023-10-12 06:45 | NUR ---
awake and moving about in bed, repositioned up in bed, bedside shift report received from RANJIT Solomon
[2023-10-12 07:29] LABS: MEAN CELL VOLUME 97 fl (80.0-100.0); MEAN CORPUSCULAR HGB CONC 30 g/dl (33.0-37.0); MEAN PLATELET VOLUME 10.9 fl (7.4-10.4); PLATELET COUNT 86 K/mm3 (130-400); RED BLOOD COUNT 2.82 M/mm3 (4.20-5.60)
[2023-10-12 07:30] LABS: HEMATOCRIT 27.3 % (42.0-52.0); HEMOGLOBIN 8.3 g/dl (13.5-18.0); MEAN CORPUSCULAR HEMOGLOBIN 29 pg (27-31)
[2023-10-12 08:02] LABS: BILIRUBIN,TOTAL 0.5 mg/dL (0.2-1.2); CALCIUM 8.3 mg/dL (8.4-10.2); CREATININE, serum 3.23 mg/dL (0.72-1.25); MAGNESIUM 1.5 mg/dL (1.6-2.6); POTASSIUM 4.5 mmol/L (3.5-4.5); TOTAL PROTEIN 5.2 gm/dL (6.2-8.1)
--- NOTE | 2023-10-12 08:10 | NUR ---
sitting up and is eating breakfast, assisted with having his grapes and nutritional drink
--- NOTE | 2023-10-12 08:30 | NUR ---
Dr Smith and care team in to see patient, will plan discharge back to skilled facility later today
[2023-10-12] MEDS ORDERED: ANUSOL-HC SUPPO25 MG RC (08:35)
[2023-10-12] MEDS ORDERED: ICY HOT 10-30%85 GM TP (08:35)
[2023-10-12] MEDS ORDERED: ANUSOL HC CREAM30 GM TOP (08:35)
[2023-10-12] MEDS ORDERED: GOOD SENSE TRIP1 OI1 TP (08:35)
[2023-10-12] MEDS ORDERED: FLONASE NASAL S16 GM NS (08:36)
[2023-10-12] MEDS ORDERED: TYLENOL 325MG325 MG PO (08:37)
[2023-10-12] MEDS ORDERED: NORCO 325 MG-51 TAB PO (08:39)
--- NOTE | 2023-10-12 08:50 | NUR ---
physical therapy in to work with patient, ambulating in kramer with minimal assist
--- NOTE | 2023-10-12 09:16 | NUR ---
DIGNAV services in to place PICC
--- NOTE | 2023-10-12 09:17 | NUR ---
Follow up visit; Patient was surprised when Activities Counselor recognized him and offered God's blessings and let him know he was in Activities Counselor's prayers from his previous visit to our hospital. Activities Counselor will continue to "follow up."
--- NOTE | 2023-10-12 10:47 | NUR ---
AIV services continue to work with patient
--- NOTE | 2023-10-12 11:00 | NUR ---
midline vascular access placed, full assessment completed, see interventions for further info, is more confused now than earlier this am, unclear what he was trying to tell us, Dr Engle in to see patient, has scant amount drainage to jose j wrap around midline catheter site
[2023-10-12 11:33] LABS: INR 1.4 (0.8-3.0); PROTHROMBIN TIME 15.7 SECONDS (9.7-12.8)
--- NOTE | 2023-10-12 12:05 | NUR ---
attempting to get up, sat up on side of bed and used urinal, then assisted to chair and chair alarm on, radiology in to get chest xray and check for pleural effusion, removed jose j wrap to left elbow and forearm, has small open area to left elbow and mepiplex drssing placed,
--- NOTE | 2023-10-12 12:50 | NUR ---
dressing to left forearm and mepiplex to right forearm removed, has some weeping to right forearm and mepiplex dressing replaced, on left forearm it was just bruising and some skin tears, left open to air
--- NOTE | 2023-10-12 13:31 | NUR ---
Consumer Relations Specialist was notified that patient is ready for discharge today. LENA contacted Cali at [facility] and faxed clinical updates with discharge orders. Cali advised someone would be there in about 30 minutes to chart picker patient. Discharge Plan: [facility]
--- NOTE | 2023-10-12 13:32 | NUR ---
sitting up in bed eatintg salad
--- NOTE | 2023-10-12 13:51 | NUR ---
spoke with AIV services and informed them of some bleeding to dressing, will notify Rick and the dressing can be changed as needed
--- NOTE | 2023-10-12 14:03 | NUR ---
report called to Keya mariscal [facility]
== END 2023-10-12 14:03 | DRG 291 ==
LOC: COL.ER 21:27 → SURG 10-10 04:35
PROVIDERS: Emergency Medicine; Internal Medicine; Radiology Diagnostic Radiology; ADMIT Hospitalist
DX: I13.0 Hypertensive heart and chronic kidney disease with heart failure and stage 1 through stage 4 chronic kidney disease, or unspecified chronic kidney disease (principal); J96.01 Acute respiratory failure with hypoxia; N18.4 Chronic kidney disease, stage 4 (severe); I48.91 Unspecified atrial fibrillation; I25.10 Atherosclerotic heart disease of native coronary artery without angina pectoris; Z95.1 Presence of aortocoronary bypass graft; E78.5 Hyperlipidemia, unspecified; R11.0 Nausea; K59.00 Constipation, unspecified
CPT/HCPCS: A9270; C1751; C1892; J0290; J0696; J1940; J2270; J2405; J3475; Q3014

== ENCOUNTER 2023-10-14 12:24 | Emergency (ER) | payer MEDICARE, BC ==
[~2023-10-14] VITALS: Ht 170 cm; Wt 77.3 kg
[~2023-10-14 12:24] MED LIST changes: +AMPICILLIN 22 G/VIAL IV; +ANUSOL HC CREAM30 GM TOP; +ANUSOL-HC SUPPO25 MG RC; +ATROVENT I0.2 MG/1 M IH; +DULCOLAX S10 MG/SUPP RC; +DULCOLAX TAB5 MG PO; +FLEET ENEM1 BOT/133 RC; +FLONASE NASAL S16 GM NS; +GOOD SENSE TRIP1 OI1 TP; +ICY HOT 10-30%85 GM TP; +MYCOSTATIN100000 U/1 TP; +ROCEPHIN 2GM VIAL21 IJ; +ROCEPHIN 2GM VIAL21 IV; +SENNA-LAX8.6 MG PO; +TYLENOL 325MG325 MG PO
[2023-10-14 12:34] VITALS: TEMP 98.3
[2023-10-14 13:53] LABS: BASO % 0.1 % (0.0-2.0); GRAN # 6.9 K/mm3 (1.4-6.5); GRAN % 75.7 % (42.2-75.2); LYMPH % 11.1 % (20.0-51.0); MEAN CELL VOLUME 95 fl (80.0-100.0); MEAN CORPUSCULAR HGB CONC 30 g/dl (33.0-37.0); MEAN PLATELET VOLUME 9.5 fl (7.4-10.4); MONO # 1.1 K/mm3 (0.1-0.6); MONO % 12.2 % (1.7-9.3); RED BLOOD COUNT 2.81 M/mm3 (4.20-5.60); REDCELL DISTRIBUTION WIDTH-CV 22.2 % (11.5-14.5)
[2023-10-14 13:56] LABS: HEMATOCRIT 26.7 % (42.0-52.0); MEAN CORPUSCULAR HEMOGLOBIN 28 pg (27-31); PLATELET COUNT 221 K/mm3 (130-400)
[2023-10-14 14:09] LABS: BILIRUBIN,TOTAL 0.6 mg/dL (0.2-1.2); CALCIUM 8.6 mg/dL (8.4-10.2); CREATININE, serum 3.57 mg/dL (0.72-1.25); POTASSIUM 4.5 mmol/L (3.5-4.5); TOTAL PROTEIN 5.5 gm/dL (6.2-8.1)
[2023-10-14] MEDS ORDERED: ANECREAMREC2 RC (15:05)
[2023-10-14] MEDS ORDERED: HEMORRHOIDAL HYGI50% TP (15:05)
[2023-10-14 15:23] VITALS: BP 181/80; PULSE 74
[2023-10-14] MEDS ORDERED: PROBICHEW 21 B1 EACH PO (15:54)
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
== END 2023-10-14 15:51 | disposition home or self-care (01) ==
LOC: COL.ER 12:24
PROVIDERS: Emergency Medicine
DX: F03.911 Unspecified dementia, unspecified severity, with agitation (principal); R19.7 Diarrhea, unspecified; N18.4 Chronic kidney disease, stage 4 (severe); Z79.891 Long term (current) use of opiate analgesic

== ENCOUNTER 2023-10-15 03:34 | Emergency (ER) | payer MEDICARE, BC ==
[~2023-10-15] VITALS: Ht 172.7 cm; Wt 86.4 kg
[~2023-10-15 03:34] MED LIST changes: +ANECREAMREC2 RC; +HEMORRHOIDAL HYGI50% TP; +PROBICHEW 21 B1 EACH PO
[2023-10-15 04:26] LABS: BASO % 0.1 % (0.0-2.0); GRAN # 8.4 K/mm3 (1.4-6.5); GRAN % 77.3 % (42.2-75.2); HEMATOCRIT 23.1 % (42.0-52.0); LYMPH # 1.2 K/mm3 (1.2-3.4); LYMPH % 11.3 % (20.0-51.0); MEAN CELL VOLUME 98 fl (80.0-100.0); MEAN CORPUSCULAR HEMOGLOBIN 29 pg (27-31); MEAN CORPUSCULAR HGB CONC 30 g/dl (33.0-37.0); MEAN PLATELET VOLUME 9.7 fl (7.4-10.4); MONO # 1.2 K/mm3 (0.1-0.6); MONO % 10.6 % (1.7-9.3); PLATELET COUNT 236 K/mm3 (130-400); RED BLOOD COUNT 2.35 M/mm3 (4.20-5.60); REDCELL DISTRIBUTION WIDTH-CV 22.4 % (11.5-14.5)
[2023-10-15 04:27] LABS: HEMOGLOBIN 6.9 g/dl (13.5-18.0)
[2023-10-15 04:28] LABS: INR 1.6 (0.8-3.0); PROTHROMBIN TIME 17.3 SECONDS (9.7-12.8)
[2023-10-15 04:31] LABS: PARTIAL THROMBOPLASTIN TIME 29.4 SECONDS (26.0-37.0)
[2023-10-15 04:39] LABS: BILIRUBIN,TOTAL 0.8 mg/dL (0.2-1.2); CALCIUM 8.4 mg/dL (8.4-10.2); CREATININE, serum 3.58 mg/dL (0.72-1.25); POTASSIUM 4.6 mmol/L (3.5-4.5); TOTAL PROTEIN 5.4 gm/dL (6.2-8.1)
[2023-10-15] MEDS ORDERED: droPERidol 2.5 MG/ML 2 ML VIAL IV ONE (04:45)
[2023-10-15] MEDS ORDERED: WATER FOR INJECTION STERILE IV ONE (05:00)
[2023-10-15] MEDS ORDERED: PROTHROMBIN COMPLEX HUMAN IV ONE (05:00)
[2023-10-15 05:02] LABS: TROPONIN-I 0.104 ng/mL (0.00-0.033)
[2023-10-15] MEDS ORDERED: cefTRIAXone 2 G in Water For Injection,Sterile 20 ML IV ONE (06:15)
[2023-10-15] MEDS ORDERED: fentaNYL 50 MCG/ML 2 ML VIAL IV ONE (06:45)
[2023-10-15 07:30] VITALS: BP 140/58; PULSE 80; TEMP 97.7
[2023-10-15 07:41] VITALS: BP 140/58; PULSE 79; TEMP 97
== END 2023-10-15 07:41 | disposition short-term general hospital (02) ==
LOC: COL.ER 03:34
PROVIDERS: Emergency Medicine
DX: K92.2 Gastrointestinal hemorrhage, unspecified (principal); G93.40 Encephalopathy, unspecified; I48.20 Chronic atrial fibrillation, unspecified; Z79.01 Long term (current) use of anticoagulants
CPT/HCPCS: J0290; J0696; J1790; J3010; P9016